=== PATIENT | female | born 1985 | race Hispanic/Latino ===

== ENCOUNTER 2019-05-20 15:13 | Emergency (ER) | payer BC ==
[2019-05-20] MEDS ORDERED: Ibuprofen 800 MG TAB ONE (16:17)
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
== END 2019-05-20 16:55 | disposition home or self-care (01) ==
LOC: ERS 15:13
DX: S40.012A Contusion of left shoulder, initial encounter (principal); S80.01XA Contusion of right knee, initial encounter; V49.9XXA Car occupant (driver) (passenger) injured in unspecified traffic accident, initial encounter